=== PATIENT | male | born 1960 | race African-American/Black ===

== ENCOUNTER 2017-02-10 23:23 | Inpatient (IN) | payer MEDICARE ==
[~2017-02-10] VITALS: Ht 172.7 cm; Wt 58.3 kg
[2017-02-11] VITALS (13 sets, daily range): BP systolic 90–132; BP diastolic 64–96
[2017-02-11 00:28] LABS: BASO % 1 % (0-3); EOS # 0.2 x10^3/uL (0.0-0.7); EOS % 4 % (0-3); HEMATOCRIT 43.5 % (39.0-53.0); HEMOGLOBIN 15.3 g/dL (13.0-17.5); LYMPH # 1.2 x10^3/uL (1.0-4.8); LYMPH % 27 % (24-48); MEAN CORPUSCULAR HEMOGLOBIN 33 pg (25-35); MEAN CORPUSCULAR HGB CONC 35 g/dL (31-37); MEAN CORPUSCULAR VOLUME 93 fL (79-100); MONO # 0.5 x10^3/uL (0.0-1.1); MONO % 10 % (0-9); NEUT # 2.5 x10^3uL (1.8-7.7); NEUT % 58 % (31-73); PLATELET COUNT 193 x10^3/uL (140-400); RED BLOOD COUNT 4.67 x10^6/uL (4.30-5.70); RED CELL DISTRIBUTION WIDTH 13.7 % (11.5-14.5); WHITE BLOOD COUNT 4.4 x10^3/uL (4.0-11.0)
[2017-02-11 00:33] LABS: CALCIUM 8.7 mg/dL (8.5-10.1); CREATININE 0.9 mg/dL (0.7-1.3); GFR 104.9
[2017-02-11 00:36] LABS: BARBITURATES NEG (NEG); BENZODIAZEPINES NEG (NEG); CANNABINOIDS NEG (NEG); COCAINE NEG (NEG); METHADONE NEG (NEG); OPIATES NEG (NEG); PHENCYCLIDINE NEG (NEG)
[2017-02-11 00:39] LABS: POTASSIUM 2.1 mmol/L (3.5-5.1)
[2017-02-11 00:40] LABS: AMPHETAMINE/METHAMPHETAMINE NEG (NEG)
--- NOTE | 2017-02-11 01:15 | EKG ---
[address] [address] Test Date: 2017-02-11 Test Time: 00:44:47 Pat Name: JEFF SEXTON Department: Room: Gender: M Chaperon: : 1960 Requested By: MONICA FRAIRE Order Number: [id number] Reading MD: Measurements Intervals [place] Rate: 92 P: 68 IL: 190 QRS: -47 QRSD: 78 T: 44 QT: 358 QTc: 448 Interpretive Statements SINUS RHYTHM ABNORMAL LEFT AXIS DEVIATION LEFT ANTERIOR FASCICULAR BLOCK QRS(T) CONTOUR ABNORMALITY CANNOT RULE OUT ANTEROSEPTAL MYOCARDIAL DAMAGE RI6.01 Unconfirmed report No previous ECG available for comparison
[2017-02-11] MEDS ORDERED: ONDANSETRON PF 4 MG/2 ML VIAL. IV PRN (02:30)
[2017-02-11] MEDS ORDERED: ACETAMINOPHEN 325 MG TABLET PO PRN (02:30)
[2017-02-11] MEDS ORDERED: IV NORMAL SALINE 1,000ML 1,000 ML ONE (02:32)
[2017-02-11] MEDS ORDERED: POTASSIUM CL 40MEQ IN 0.9%NACL 1,000 ML IV ONE (02:45)
[2017-02-11] MEDS ORDERED: POTASSIUM CHLORIDE 20 MEQ/15 ML ORAL LIQUID. PEG ONE (02:45)
[2017-02-11] MEDS ORDERED: POTASSIUM CHLORIDE 20 MEQ/15 ML ORAL LIQUID. PO ONE (02:45)
--- NOTE | 2017-02-11 03:45 | ED.ADGEN ---
Adult General HPI HPI Patient is a 56-year-old man, with history of hypokalemia, for which he takes potassium supplementation, history of hypertension, for which he takes amlodipine, history of depression, for which he takes Topamax, who presents the emergency department with a complaint of suicidal ideation. Patient states he was kicked out of the house by his , feels as though he has no support, and "everybody is after me". Patient states that he currently plans to kill himself by driving off her bridge. He has a history of several previous attempts of hematocrit his wrists, and one attempt of alcohol overdose. He states he did have a single glass of tequila prior to come to the ED today. He states he did speak to his counselor, María, who instructed him to come to the ED for additional evaluation. Patient is extremely tearful in the emergency department. He denies any auditory or visual hallucinations, he denies any ingestions aside from the alcohol prior to coming to the ED. Review of Systems Review of Systems Constitutional: Denies fever or chills [] Eyes: Denies change in visual acuity, redness, or eye pain [] HENT: Denies nasal congestion or sore throat [] Respiratory: Denies cough or shortness of breath [] Cardiovascular: No additional information not addressed in HPI [] GI: Denies abdominal pain, nausea, vomiting, bloody stools or diarrhea [] : Denies dysuria or hematuria [] Musculoskeletal: Denies back pain or joint pain [] Integument: Denies rash or skin lesions [] Neurologic: Denies headache, focal weakness or sensory changes [] Endocrine: Denies polyuria or polydipsia [ Complains of depression with suicidal ideation.] Allergies Allergies Allergies Coded Allergies Type Severity Reaction Last Updated Verified levofloxacin Allergy Unknown 02/11/17 Yes Physical Exam Physical Exam Constitutional: Well developed, well nourished, no acute distress, non-toxic appearance. [] HENT: Normocephalic, atraumatic, bilateral external ears normal, oropharynx moist, no oral exudates, nose normal. [] Eyes: PERRLA, EOMI, conjunctiva normal, no discharge. [] Neck: Normal range of motion, no tenderness, supple, no stridor. [] Cardiovascular:Heart rate regular rhythm, no murmur , S1, S2, no rubs or gallops. [] Lungs & Thorax: Bilateral breath sounds clear to auscultation , no wheezing, rhonchi, rales. No chest or crepitus or tenderness. [] Abdomen: Bowel sounds normal, soft, no tenderness, no rebound, rigidity, no guarding, no masses, no pulsatile masses. [] Skin: Warm, dry, no erythema, no rash. [] Back: No tenderness, no CVA tenderness. [] Extremities: No tenderness, no cyanosis, no clubbing, ROM intact, no edema. [] Neurologic: Alert and oriented X 3, normal motor function, normal sensory function, no focal deficits noted. [] Psychologic: Patient tearful, crying during my examination, but is answering questions appropriately. Current Patient Data Lab Results Laboratory Tests Test 02/11/17 00:00 02/11/17 00:15 Urine Opiates Screen Neg (NEG) Urine Methadone Screen Neg (NEG) Urine Barbiturates Neg (NEG) Urine Phencyclidine Screen Neg (NEG) Urine Amphetamine/Methamphetamine Neg (NEG) Urine Benzodiazepines Screen Neg (NEG) Urine Cocaine Screen Neg (NEG) Urine Cannabinoids Screen Neg (NEG) Urine Ethyl Alcohol Pos (NEG) White Blood Count 4.4 x10^3/uL (4.0-11.0) Red Blood Count 4.67 x10^6/uL (4.30-5.70) Hemoglobin 15.3 g/dL (13.0-17.5) Hematocrit 43.5 % (39.0-53.0) Mean Corpuscular Volume 93 fL (79-100) Mean Corpuscular Hemoglobin 33 pg (25-35) Mean Corpuscular Hemoglobin Concent 35 g/dL (31-37) Red Cell Distribution Width 13.7 % (11.5-14.5) Platelet Count 193 x10^3/uL (140-400) Neutrophils (%) (Auto) 58 % (31-73) Lymphocytes (%) (Auto) 27 % (24-48) Monocytes (%) (Auto) 10 % (0-9) H Eosinophils (%) (Auto) 4 % (0-3) H Basophils (%) (Auto) 1 % (0-3) Neutrophils # (Auto) 2.5 x10^3uL (1.8-7.7) Lymphocytes # (Auto) 1.2 x10^3/uL (1.0-4.8) Monocytes # (Auto) 0.5 x10^3/uL (0.0-1.1) Eosinophils # (Auto) 0.2 x10^3/uL (0.0-0.7) Basophils # (Auto) 0.0 x10^3/uL (0.0-0.2) Sodium Level 139 mmol/L (136-145) Potassium Level 2.1 mmol/L (3.5-5.1) *L Chloride Level 100 mmol/L (98-107) Carbon Dioxide Level 25 mmol/L (21-32) Anion Gap 14 (6-14) Blood Urea Nitrogen 12 mg/dL (8-26) Creatinine 0.9 mg/dL (0.7-1.3) Estimated GFR (Cockcroft-Gault) 104.9 Glucose Level 180 mg/dL (70-99) H Calcium Level 8.7 mg/dL (8.5-10.1) Magnesium Level 2.2 mg/dL (1.8-2.4) Ethyl Alcohol Level 73 mg/dL (0-10) H EKG EKG EC: Sinus rhythm, heart rate 92 beats minute, left axis deviation, with left anterior fascicular block noted, QTc of 448, PA of 190, Or 78, no ST elevations or depressions, abnormal ECG, does not meet STEMI criteria. As interpreted by me. [] Radiology/Procedures Radiology/Procedures Chest x-ray: One view: Normal cardiopulmonary silhouette, no infiltrates, no effusions, no pneumothorax, no soft tissue or bony abnormalities identified. As interpreted by me. [] Course & Med Decision Making Course & Med Decision Making Pertinent Labs and Imaging studies reviewed. (See chart for details) Patient's potassium resulted at 2.1. I did discuss this with the patient, he states that he again does have a history of hypokalemia but has been compliant with medications. I discussed with the patient this time we'll need to admit him to the hospital to receive potassium repletion, and that he could be evaluated for psychiatric complaints. He remains on one-to-one observation in the emergency department, is occasionally tearful and crying, but otherwise is cooperative with his examination. Patient with a magnesium of 2.2, sodium 139, glucose of 180, no other abnormality is identified. Patient remains stable in sinus rhythm on the monitor, with heart rate in the 80s. Findings as above discussed with Dr. Zamarripa, the hospitalist on-call. Patient accepted to his service as a full admission to the ICU for continued monitoring, and repletion. Patient received oral repletion with 40 mEq of potassium in the ED, was initiated on 40 mEq of potassium in a liter of normal saline, and additional 40 mEq of potassium given orally upon admission to the hospital. Patient tolerated initiation repletion without issue, was transported to the ICU in stable condition. Bridge orders entered per discussion, with repeat laboratory studies for the morning and continued one-on-one observation. Final Impression Final Impression [] Problems: Dragon Disclaimer Dragon Disclaimer This electronic medical record was generated, in whole or in part, using a voice recognition dictation system. Departure: Impression: Primary Impression: Hypokalemia Additional Impression: Suicidal ideation Disposition: ADMITTED INPATIENT Admitting Physician: Miguel Ángel Zamarripa Condition: IMPROVED MONICA FRAIRE DO Feb 11, 2017 03:45
--- NOTE | 2017-02-11 07:15 | RAD ---
Portable AP upright view CXR: Clinical indications: Weakness and cough. Comparison: January 18, 2011 Findings: No acute lung infiltrate or pleural effusion or pulmonary edema or lung mass or pneumothorax is seen. The heart size, pulmonary vasculature, mediastinum and both leanne are unremarkable. Impression: No acute radiographic abnormality is seen.
[2017-02-11] MEDS ORDERED: AMLO10TA2 PO (07:32)
[2017-02-11] MEDS ORDERED: TOPI100T8 PO (07:32)
[2017-02-11] MEDS ORDERED: OLAN5TAB9 PO (07:32)
[2017-02-11] MEDS ORDERED: HYDR25TA9 PO (07:32)
[2017-02-11] MEDS ORDERED: HYDR25TA PO (07:32)
[2017-02-11 08:41] LABS: BASO % 1 % (0-3); EOS # 0.2 x10^3/uL (0.0-0.7); EOS % 4 % (0-3); HEMATOCRIT 40.7 % (39.0-53.0); HEMOGLOBIN 14.3 g/dL (13.0-17.5); LYMPH # 1.3 x10^3/uL (1.0-4.8); LYMPH % 36 % (24-48); MEAN CORPUSCULAR HEMOGLOBIN 33 pg (25-35); MEAN CORPUSCULAR HGB CONC 35 g/dL (31-37); MEAN CORPUSCULAR VOLUME 93 fL (79-100); MONO # 0.4 x10^3/uL (0.0-1.1); MONO % 11 % (0-9); NEUT # 1.7 x10^3uL (1.8-7.7); NEUT % 48 % (31-73); PLATELET COUNT 195 x10^3/uL (140-400); RED BLOOD COUNT 4.37 x10^6/uL (4.30-5.70); RED CELL DISTRIBUTION WIDTH 13.6 % (11.5-14.5); WHITE BLOOD COUNT 3.6 x10^3/uL (4.0-11.0)
[2017-02-11 08:45] LABS: CALCIUM 8.5 mg/dL (8.5-10.1); CREATININE 0.9 mg/dL (0.7-1.3); GFR 104.9
[2017-02-11] MEDS: TOPIRAMATE 100 MG TABLET. PO SCH (08:45)
[2017-02-11] MEDS ORDERED: hydrOXYzine HCL 25 MG TABLET PO SCH ×2 (09:00→21:00)
--- NOTE | 2017-02-11 09:59 | ACF ---
Admission Criteria Forms HYPONATREMIA; HYPERNATREMIA; HYPOKALEMIA; HYPERKALEMIA; HYPOCALCEMIA; HYPERCALCEMIA Clinical Indications for Inpatient Care (Place 'X' for any and all applicable criteria): Ongoing inpatient care may be indicated for ANY ONE of the following [G](1)(2)(3 )(5): [ ]I. Hyponatremia with ANY ONE of the following: [ ]a) Sodium less than 130 mEq/L (mmol/L) (new) (6)(22) [ ]b) Sodium less than 135 mEq/L (mmol/L) with ANY ONE of the following: [ ]i) Severe medical etiology requiring inpatient management (eg, heart failure, hypovolemia) [ ]ii) Altered mental status [ ]iii) Seizures [ ]II. Hypernatremia with ANY ONE of the following: [ ]a) Sodium greater than 155 mEq/L (mmol/L) [ ]b) Sodium greater than 150 mEq/L (mmol/L) with ANY ONE of the following: [ ] i) Altered mental status [ ]ii) Seizures [ ]iii) Severe medical etiology (eg, hypovolemia, diabetes insipidus) [ ]iv) Severe weakness [ ]v) Severe medical etiology (eg, hemolysis, infection, drug overdose) [X]III. Hypokalemia with ANY ONE of the following: [X]a) Potassium less than 2.5 mEq/L (mmol/L) despite outpatient and emergency treatment [ ]b) Potassium less than 3.0 mEq/L (mmol/L) with ANY ONE of the following: [ ]i) Weakness [ ]ii) Cardiac abnormality (eg, arrhythmia, conduction disturbance) [ ]iii) Cardiac ischemia [ ]iv) Ileus [ ]v) Ongoing medical cause requiring inpatient management. ( e.g., acute renal wasting, SIADH) [ ]vi) Other severe symptoms [ ] IV. Hyperkalemia with ANY ONE of the following: [ ]a) Potassium greater than 6.5 mEq/L (mmol/L) [ ]b) Potassium greater than 5 mEq/L (mmol/L) with ANY ONE of the following: [ ]i) Severe ECG findings [H] [ ]ii) Acute worsening of renal failure (creatinine greater than 2.5 mg/dL (221 micromoles/L) or significant elevation for age and size) [ ] V. Hypocalcemia with ANY ONE of the following: [ ]a) Calcium less than 7 mg/dL (1.75 mmol/L) despite outpatient and emergency treatment(19) [ ]b) Calcium less than 8 mg/dL (2 mmol/L) with significant symptoms or findings; examples include: [ ]i) Cardiac abnormality (eg, arrhythmia or conduction disturbance) [ ]ii) Altered mental status [ ]iii) Seizures [ ]iv) Breathing difficulty [ ]v) Muscle spasms [ ]. Hypercalcemia with ANY ONE of the following: [ ]a) Calcium greater than 14 mg/dL (3.5 mmol/L) [ ]b) Calcium greater than 12 mg/dL (3 mmol/L) with ANY ONE of the following: [ ]i) Significant dehydration or hypovolemia as indicated by ANY ONE of the following(2): [ ]1. Clinically significant dehydration as indicated by ANY ONE of the following: [ ]A. Acute loss of weight from baseline (5% of body weight in adults, 9% in pediatric patients) [ ]B. Hemodynamic instability [ ]C. Acute renal failure [ ]D. Serum sodium greater than 150 mEq/L (mmol/L) [ ]2) Dehydration that is persistent indicated by ALL of the following: [ ]A. Oral rehydration therapy not tolerated or insufficient to adequately correct dehydration [ ]B. Appropriate intravenous treatment (eg, fluids ) does not readily correct dehydration ie, after 12 to 24 hours of treatment) [ ]ii) Significant symptoms or findings; examples include: [ ]1) Altered mental status [ ]2) Cardiac abnormality (eg, arrhythmia, conduction disturbance) [ ]3) Cardiac abnormality (eg, arrhythmia, conduction disturbance) The original [facility] content created by [employer] has been revised. The portions of the content which have been revised are identified through the use of italic text or in bold, and [email or web address] has neither reviewed nor approved the modified material. All other unmodified content is copyright [facility] [email or web address] Please see references footnoted in the original [facility] [employer] edition 2016 Admission Criteria Met?: Yes JAZ SINGLETON Feb 11, 2017 09:59
[2017-02-11] MEDS: OLANZapine 5 MG TABLET PO SCH (11:11)
[2017-02-11] MEDS ORDERED: POTASSIUM CHLORIDE 20 MEQ TABLET.ER. PO ONE ×3 (12:45→16:45)
--- NOTE | 2017-02-11 15:47 | PDOC1 ---
History and Physicial This is a history and physical on Ebenezer Lee Junior Date of admission 02/11/2017 Reason for admission: This is a 56-year-old -[place] Citizen male who was admitted for both suicidal ideation and markedly low potassium. He presented to the emergency room complaining of suicidal ideation. He got in his car apparently he states And started driving with no particular place to go. His threw him out and has filed for divorce. She will not tell him why she is him. He called the psychologist and told him to go to the hospital. Past medical history: Hypertension, depression, daily alcohol use. bipolar disorder Previous treatment for depression: The patient has had a history of several suicide attempts 1 with slashing of his wrists and other alcohol overdose. Surgical history negative Allergies: Levaquin Medications were reviewed and are available on the MAR Social history: patient is for 19 years he states his he does not work but his does. Apparently there was some incident at school where she works when he went there he will commented that he looks somewhat younger than his and this made her quite angry. 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 HEENT normal tongue moist throat clear Lungs were clear to auscultation cardiovascular regular rhythm and rate Abdomen was soft nontender palpation no masses palpated. Extremities were without edema Psychological: Mood is depressed and anxious. Does have gross state of desperation regarding his impending divorce which he has no idea why Labs have potassium was 2.0 labs unremarkable Assessment: #1 hypokalemia, #2 hypertension, #3 depression with suicidal ideation, for unstable social situation pending divorce Plan: Treat his hypokalemia. Discontinue the hydrochlorothiazide. Due to his low potassium we were not able to get him to the guidance Center today. He no longer feels suicidal. He was on one-on-one observation but now is every 15 minutes observation. Problems: (1) Bipolar 1 disorder (2) Hypokalemia (3) Suicidal ideation ADRIENNE FAGAN DO Feb 11, 2017 15:47
[2017-02-12 05:01] VITALS: BP 126/87
[2017-02-12 06:30] LABS: BASO % 1 % (0-3); EOS # 0.2 x10^3/uL (0.0-0.7); EOS % 5 % (0-3); HEMATOCRIT 36.7 % (39.0-53.0); HEMOGLOBIN 12.6 g/dL (13.0-17.5); LYMPH # 1.5 x10^3/uL (1.0-4.8); LYMPH % 36 % (24-48); MEAN CORPUSCULAR HEMOGLOBIN 33 pg (25-35); MEAN CORPUSCULAR HGB CONC 34 g/dL (31-37); MEAN CORPUSCULAR VOLUME 95 fL (79-100); MONO # 0.4 x10^3/uL (0.0-1.1); MONO % 9 % (0-9); NEUT # 2.1 x10^3uL (1.8-7.7); NEUT % 50 % (31-73); PLATELET COUNT 159 x10^3/uL (140-400); RED BLOOD COUNT 3.85 x10^6/uL (4.30-5.70); RED CELL DISTRIBUTION WIDTH 13.8 % (11.5-14.5); WHITE BLOOD COUNT 4.2 x10^3/uL (4.0-11.0)
[2017-02-12 06:34] LABS: CALCIUM 8.4 mg/dL (8.5-10.1); GFR 92.9; POTASSIUM 3.6 mmol/L (3.5-5.1)
[2017-02-12] MEDS: TOPIRAMATE 100 MG TABLET. PO SCH (08:35)
[2017-02-12] MEDS: OLANZapine 5 MG TABLET PO SCH (08:35)
--- NOTE | 2017-02-12 11:46 | PDOC3 ---
Discharge Summary Visit Information Date of Admission: Feb 11, 2017 Date of Discharge: Feb 12, 2017 Admitting Diagnosis: Hypokalemia, Suicidal Ideation Final Diagnosis Problems Medical Problems: (1) Hypokalemia Status: Acute (2) Suicidal ideation Status: Acute (3) Hypertension (4) Marital discord (5) Bipolar disorder Problems: Brief Hospital Course Allergies Allergies Coded Allergies Type Severity Reaction Last Updated Verified levofloxacin Allergy Intermediate 02/11/17 Yes Vital Signs Vital Signs Date Time Temp Pulse Resp B/P (MAP) Pulse Ox O2 Delivery O2 Flow Rate FiO2 02/12/17 08:00 Room Air 02/12/17 05:01 97.8 77 18 126/87 (100) 98 Lab Results Laboratory Tests Test 02/11/17 00:00 02/11/17 00:15 02/11/17 04:00 02/11/17 08:00 Urine Opiates Screen Neg (NEG) Urine Methadone Screen Neg (NEG) Urine Barbiturates Neg (NEG) Urine Phencyclidine Screen Neg (NEG) Urine Amphetamine/Methamphetamine Neg (NEG) Urine Benzodiazepines Screen Neg (NEG) Urine Cocaine Screen Neg (NEG) Urine Cannabinoids Screen Neg (NEG) Urine Ethyl Alcohol Pos (NEG) White Blood Count 4.4 x10^3/uL (4.0-11.0) 3.6 x10^3/uL (4.0-11.0) Red Blood Count 4.67 x10^6/uL (4.30-5.70) 4.37 x10^6/uL (4.30-5.70) Hemoglobin 15.3 g/dL (13.0-17.5) 14.3 g/dL (13.0-17.5) Hematocrit 43.5 % (39.0-53.0) 40.7 % (39.0-53.0) Mean Corpuscular Volume 93 fL (79-100) 93 fL (79-100) Mean Corpuscular Hemoglobin 33 pg (25-35) 33 pg (25-35) Mean Corpuscular Hemoglobin Concent 35 g/dL (31-37) 35 g/dL (31-37) Red Cell Distribution Width 13.7 % (11.5-14.5) 13.6 % (11.5-14.5) Platelet Count 193 x10^3/uL (140-400) 195 x10^3/uL (140-400) Neutrophils (%) (Auto) 58 % (31-73) 48 % (31-73) Lymphocytes (%) (Auto) 27 % (24-48) 36 % (24-48) Monocytes (%) (Auto) 10 % (0-9) 11 % (0-9) Eosinophils (%) (Auto) 4 % (0-3) 4 % (0-3) Basophils (%) (Auto) 1 % (0-3) 1 % (0-3) Neutrophils # (Auto) 2.5 x10^3uL (1.8-7.7) 1.7 x10^3uL (1.8-7.7) Lymphocytes # (Auto) 1.2 x10^3/uL (1.0-4.8) 1.3 x10^3/uL (1.0-4.8) Monocytes # (Auto) 0.5 x10^3/uL (0.0-1.1) 0.4 x10^3/uL (0.0-1.1) Eosinophils # (Auto) 0.2 x10^3/uL (0.0-0.7) 0.2 x10^3/uL (0.0-0.7) Basophils # (Auto) 0.0 x10^3/uL (0.0-0.2) 0.0 x10^3/uL (0.0-0.2) Sodium Level 139 mmol/L (136-145) 139 mmol/L (136-145) Potassium Level 2.1 mmol/L (3.5-5.1) 3.0 mmol/L (3.5-5.1) Chloride Level 100 mmol/L (98-107) 102 mmol/L (98-107) Carbon Dioxide Level 25 mmol/L (21-32) 29 mmol/L (21-32) Anion Gap 14 (6-14) 8 (6-14) Blood Urea Nitrogen 12 mg/dL (8-26) 17 mg/dL (8-26) Creatinine 0.9 mg/dL (0.7-1.3) 0.9 mg/dL (0.7-1.3) Estimated GFR (Cockcroft-Gault) 104.9 104.9 Glucose Level 180 mg/dL (70-99) 108 mg/dL (70-99) Calcium Level 8.7 mg/dL (8.5-10.1) 8.5 mg/dL (8.5-10.1) Magnesium Level 2.2 mg/dL (1.8-2.4) Ethyl Alcohol Level 73 mg/dL (0-10) < 10 mg/dL (0-10) Nasal Screen MRSA (PCR) Negative (Negative) Test 02/11/17 12:17 02/11/17 16:00 02/12/17 05:39 Potassium Level 2.9 mmol/L (3.5-5.1) 3.2 mmol/L (3.5-5.1) 3.6 mmol/L (3.5-5.1) White Blood Count 4.2 x10^3/uL (4.0-11.0) Red Blood Count 3.85 x10^6/uL (4.30-5.70) Hemoglobin 12.6 g/dL (13.0-17.5) Hematocrit 36.7 % (39.0-53.0) Mean Corpuscular Volume 95 fL (79-100) Mean Corpuscular Hemoglobin 33 pg (25-35) Mean Corpuscular Hemoglobin Concent 34 g/dL (31-37) Red Cell Distribution Width 13.8 % (11.5-14.5) Platelet Count 159 x10^3/uL (140-400) Neutrophils (%) (Auto) 50 % (31-73) Lymphocytes (%) (Auto) 36 % (24-48) Monocytes (%) (Auto) 9 % (0-9) Eosinophils (%) (Auto) 5 % (0-3) Basophils (%) (Auto) 1 % (0-3) Neutrophils # (Auto) 2.1 x10^3uL (1.8-7.7) Lymphocytes # (Auto) 1.5 x10^3/uL (1.0-4.8) Monocytes # (Auto) 0.4 x10^3/uL (0.0-1.1) Eosinophils # (Auto) 0.2 x10^3/uL (0.0-0.7) Basophils # (Auto) 0.0 x10^3/uL (0.0-0.2) Sodium Level 143 mmol/L (136-145) Chloride Level 110 mmol/L (98-107) Carbon Dioxide Level 27 mmol/L (21-32) Anion Gap 6 (6-14) Blood Urea Nitrogen 12 mg/dL (8-26) Creatinine 1.0 mg/dL (0.7-1.3) Estimated GFR (Cockcroft-Gault) 92.9 Glucose Level 130 mg/dL (70-99) Calcium Level 8.4 mg/dL (8.5-10.1) Brief Hospital Course Mr. Alonzo is a 56 old -[place] male who presented with suicidal ideation after his threw him out of the house. He had been driving around aimlessly and spoke to his psychologist who advised him to go to the hospital. While under evaluation in the emergency room he was found to have very low potassium of 2.0 and was subsequently admitted. He was treated with by mouth as well as IV potassium, he received one-on-one intervention initially, and over the course of yesterday and today did not exhibit any further suicidal ideation. Psychiatric evaluation was not available at [facility] At that time. He was discharged in good condition. His hydrochlorothiazide was discontinued due to the profound hypokalemia which I believe it came from and that he had quite good blood pressures. We discussed him following up with psychologist on Tuesday, and he received type written discharge instructions sent to put put out by myself. His mental state at the time of discharge was calm and cooperative, no suicidal ideation, thought processes clear, and able to be discharged. Discharge Information Condition at Discharge: Improved, Stable Disposition/Orders: D/C to Home Dischare Medications Current Medications Potassium Chloride (KCl Oral Soln) 40 meq 1X ONCE PEG Last administered on 02:45; Start 02/11/17 at 02:45; Stop 02/11/17 at 02:46; Status DC Potassium Chloride/Sodium Chloride 1,000 ml @ 75 mls/hr 1X ONCE IV Last administered on 02/11/17 02:45; Start 02/11/17 at 02:45; Stop 02/11/17 at 16:04 ; Status DC Ondansetron HCl (Zofran) 4 mg PRN Q4HRS PRN IV NAUSEA/VOMITING; Start 02/11/17 at 02:30; Stop 02/12/17 at 02:29; Status DC Acetaminophen (Tylenol) 650 mg PRN Q4HRS PRN PO FEVER; Start 02/11/17 at 02:30 ; Stop 02/12/17 at 02:29; Status DC Potassium Chloride (KCl Oral Soln) 40 meq 1X ONCE PO ; Start 02/11/17 at 02:45 ; Stop 02/11/17 at 02:46; Status DC Sodium Chloride 1,000 ml @ As Directed STK-MED ONCE .ROUTE ; Start 02/11/17 at 02:32; Stop 02/11/17 at 02:33; Status DC Hydroxyzine HCl (Atarax) 25 mg DAILY PO ; Start 02/11/17 at 09:00; Stop at 09:00; Status DC Topiramate (Topamax) 100 mg DAILY PO Last administered on 02/12/17 08:35; Start 02/11/17 at 09:00; Stop 02/12/17 at 10:28; Status DC Hydroxyzine HCl (Atarax) 25 mg QHS PO Last administered on 02/11/17 21:37; Start 02/11/17 at 21:00; Stop 02/12/17 at 10:28; Status DC Potassium Chloride (Klor-Con) 40 meq 1X ONCE PO Last administered on 13:08; Start 02/11/17 at 12:45; Stop 02/11/17 at 12:46; Status DC Olanzapine (ZyPREXA) 5 mg DAILY PO Last administered on 02/12/17 08:35; Start 02/11/17 at 11:00; Stop 02/12/17 at 10:28; Status DC Potassium Chloride (Klor-Con) 40 meq 1X ONCE PO ; Start 02/11/17 at 13:15; Stop 02/11/17 at 13:16; Status DC Potassium Chloride (Klor-Con) 40 meq 1X ONCE PO Last administered on 17:54; Start 02/11/17 at 16:45; Stop 02/11/17 at 16:46; Status DC Active Scripts Active Reported Hydroxyzine Hcl 25 Mg Tablet 25 Mg PO DAILY 30 Days LAST DOSE GIVEN: DATE: YESTERDAY TIME: AT BEDTIME NEXT DOSE DUE: DATE: TONIGHT TIME: AT BEDTIME Olanzapine 5 Mg Tablet 5 Mg PO DAILY 30 Days LAST DOSE GIVEN: DATE: TODAY TIME: 9AM NEXT DOSE DUE: DATE: 02/13 TIME: 9AM Amlodipine Besylate 10 Mg Tablet 10 Mg PO DAILY 90 Days LAST DOSE GIVEN: HELD THIS ADMISSION NEXT DOSE DUE: DATE: 02/13 TIME: 9AM DATE: 02/12 TIME: 9AM Topiramate 100 Mg Tablet 100 Mg PO DAILY 30 Days LAST DOSE GIVEN: DATE: TODAY TIME: 9AM NEXT DOSE DUE: DATE: 02/13 TIME: 9AM Patient Instructions Patient Instuctions A typewritten instructions done on the discharge on his medical records. ADRIENNE FAGAN DO Feb 12, 2017 11:46
== END 2017-02-12 10:00 | disposition home or self-care (01) | DRG 641 ==
LOC: ER 23:23 → ICU 02-11 02:29 → 1 SOUTH 02-11 17:43
PROVIDERS: ADMIT Family Medicine; ATTEND Family Medicine
DX: E87.6 Hypokalemia (principal); R45.851 Suicidal ideations; F31.9 Bipolar disorder, unspecified; I10 Essential (primary) hypertension; Z87.898 Personal history of other specified conditions; Z91.5 Personal history of self-harm; Z88.1 Allergy status to other antibiotic agents; Z79.899 Other long term (current) drug therapy; Z79.1 Long term (current) use of non-steroidal anti-inflammatories (NSAID); Z79.82 Long term (current) use of aspirin
CPT/HCPCS: 36415; 71010; 80048; 83735; 84132; 85027; 87641; 93005; 96365; G0480; G0481; 99285-25

== ENCOUNTER 2020-02-19 14:59 | Emergency (ER) | payer SELFPAY ==
[~2020-02-19] VITALS: Ht 170.2 cm; Wt 55.5 kg
[~2020-02-19 14:59] MED LIST: AMLO10TA8 PO; HYDR-2145 PO; HYDR25TA PO; OLAN5TAB9 PO; TOPI100T8 PO
--- NOTE | 2020-02-19 15:20 | PHYS DOC ---
Past History Past Medical History: Depression, Hypertension, Other Past Surgical History: No Surgical History Smoking: Cigarettes Alcohol Use: Sober Drug Use: None General Adult EDM: Chief Complaint: ABNORMAL LABS HPI: HPI: Patient is a 59-year-old male who presents to the emergency department from his PCPs office. He saw a nurse practitioner for routine follow-up of his elevated blood pressure, he has been asymptomatic. He went for routine blood test and was found to have a white blood cell count. He also had some weight loss over the past several months, although he is uncertain how much, maybe 10 to 20 pounds he estimates. He had a chest x-ray at the doctor's office and reports that there was an abnormality in his left upper lobe, and he was sent to the emergency department for "a scan". He saw the nurse practitioner. The patient is currently asymptomatic. He denies any nasal congestion, cough, shortness of breath, or any pain. He denies any weakness, dizziness, or lightheadedness, and feels well. There are no alleviating or exacerbating factors to his symptoms otherwise. Review of Systems: Review of Systems: Constitutional: Denies fever or chills. Reports some weight loss. Eyes: Denies change in visual acuity HENT: Denies nasal congestion or sore throat Respiratory: Denies cough or shortness of breath Cardiovascular: Denies chest pain or edema GI: Denies abdominal pain, nausea, vomiting, bloody stools or diarrhea : Denies dysuria Musculoskeletal: Denies back pain or joint pain Integument: Denies rash Neurologic: Denies headache, focal weakness or sensory changes Endocrine: Denies polyuria or polydipsia Lymphatic: Denies swollen glands Psychiatric: Denies depression or anxiety Heart Score: Risk Factors: Risk Factors: DM, Current or recent (<one month) smoker, HTN, HLP, family history of CAD, obesity. Risk Scores: Score 0 - 3: 2.5% MACE over next 6 weeks - Discharge Home Score 4 - 6: 20.3% MACE over next 6 weeks - Admit for Clinical Observation Score 7 - 10: 72.7% MACE over next 6 weeks - Early Invasive Strategies Allergies: Allergies: Allergies Coded Allergies Type Severity Reaction Last Updated Verified levofloxacin Allergy Intermediate 02/11/17 Yes Physical Exam: PE: PHYSICAL EXAM: CONSTITUTIONAL: Thin, but not cachectic appearing, HEAD: normocephalic, atraumatic EENT: PERRL, EOMI. Conjunctivae normal color, sclerae non-icteric; moist mucous membranes. NECK: Supple, non-tender; no meningismus. LUNGS: There are mildly diminished breath sounds diffusely, there are some rhonchi in the left upper lobe, otherwise lungs CTA, breathing even and unlabored. HEART: Regular rate and rhythm, no murmur CHEST: No deformity; non-tender ABDOMEN: The abdomen is soft, and non-tender, no masses or bruits. EXTREM: Normal ROM; no deformity, no calf tenderness. Normal pulses palpable in all extremities. There is no pedal edema. SKIN: No rash; no diaphoresis NEURO: Alert; normal speech and cognition; CN's grossly intact; strength grossly intact without focal deficit. BACK: No CVA TTP. Current Patient Data: Labs: Laboratory Tests Test 02/19/20 15:39 White Blood Count 4.7 x10^3/uL Red Blood Count 4.73 x10^6/uL Hemoglobin 14.7 g/dL Hematocrit 43.3 % Mean Corpuscular Volume 91 fL Mean Corpuscular Hemoglobin 31 pg Mean Corpuscular Hemoglobin Concent 34 g/dL Red Cell Distribution Width 14.7 % Platelet Count 181 x10^3/uL Neutrophils (%) (Auto) 64 % Lymphocytes (%) (Auto) 24 % Monocytes (%) (Auto) 9 % Eosinophils (%) (Auto) 3 % Basophils (%) (Auto) 0 % Neutrophils # (Auto) 3.0 x10^3uL Lymphocytes # (Auto) 1.1 x10^3/uL Monocytes # (Auto) 0.4 x10^3/uL Eosinophils # (Auto) 0.1 x10^3/uL Basophils # (Auto) 0.0 x10^3/uL Sodium Level 137 mmol/L Potassium Level 3.7 mmol/L Chloride Level 103 mmol/L Carbon Dioxide Level 27 mmol/L Anion Gap 7 Blood Urea Nitrogen 7 mg/dL Creatinine 1.1 mg/dL Estimated GFR (Cockcroft-Gault) 82.3 BUN/Creatinine Ratio 6 Glucose Level 105 mg/dL Calcium Level 8.8 mg/dL Total Bilirubin 1.1 mg/dL Aspartate Amino Transf (AST/SGOT) 12 U/L Alanine Aminotransferase (ALT/SGPT) 17 U/L Alkaline Phosphatase 72 U/L OU-Tan-T-Type Natriuretic Peptide 16 pg/mL Total Protein 7.5 g/dL Albumin 3.7 g/dL Albumin/Globulin Ratio 1.0 Current Medications Medications (Trade) Dose Ordered Sig/Yan Route PRN Reason Start Time Stop Time Status Last Admin Dose Admin Iohexol (Omnipaque 350 Mg/ml) 100 ml 1X ONCE IV 02/19/20 15:30 02/19/20 15:32 DC 02/19/20 15:50 EKG: EKG: [] Radiology/Procedures: Radiology/Procedures: PROCEDURE: CT CHEST W/CONTRAST CT CHEST W/CONTRAST Indication: Abnormal chest x-ray, elevated WBC, weight loss Technique: Postcontrast CT imaging was performed of the chest, multiplanar reconstruction images submitted. One or more of the following individualized dose reduction techniques were utilized for this examination: 1. Automated exposure control 2. Adjustment of the mA and/or kV according to patient size 3. Use of iterative reconstruction technique. Comparison: January 31, 2008 Findings: There is no infiltrate or suspicious pulmonary nodularity. There is no pleural or pericardial fluid or pneumothorax. There is appearance of a thin accessory fissure of the right lower lobe although only partially visualized, vasculature in this region within normal limits. There is diffuse low-density of the liver probably due to steatosis. There is a small more defined hypodense lesion of the left lobe liver about 0.6 cm difficult to accurately characterize although probably a cyst. Aortic root is somewhat ectatic about 3.8 cm. Tubular ascending thoracic aortic caliber is within normal limits, no intraluminal flap. No significantly enlarged nodes are identified of the chest. IMPRESSION: 1. There is no suspicious pulmonary nodularity or significant infiltrate. 2. There is probable hepatic steatosis.[] Course & Med Decision Making: Course & Med Decision Making Pertinent Labs and Imaging studies reviewed. (See chart for details) [] Patient remains stable. I discussed test results, the need for close follow- up, and return precautions. Dragon Disclaimer: Dragon Disclaimer: This electronic medical record was generated, in whole or in part, using a voice recognition dictation system. Departure Departure: Impression: Primary Impression: Tobacco abuse Disposition: HOME/RESIDENCE PRIOR TO ADM Condition: STABLE Referrals: AGNES HUTSON MD (PCP) Patient Instructions: Smoking Cessation Justification of Admission: Justification of Admission: Justification of Admission Dx: N/A MELODIE IRVIN MD Feb 19, 2020 15:19
[2020-02-19] MEDS ORDERED: IOHEXOL 350 MG/ML 100 ML VIAL. IV ONE (15:30)
[2020-02-19 16:04] LABS: BASO % 0 % (0-3); EOS # 0.1 x10^3/uL (0.0-0.7); EOS % 3 % (0-3); HEMATOCRIT 43.3 % (39.0-53.0); HEMOGLOBIN 14.7 g/dL (13.0-17.5); LYMPH # 1.1 x10^3/uL (1.0-4.8); LYMPH % 24 % (24-48); MEAN CORPUSCULAR HEMOGLOBIN 31 pg (25-35); MEAN CORPUSCULAR HGB CONC 34 g/dL (31-37); MEAN CORPUSCULAR VOLUME 91 fL (79-100); MONO # 0.4 x10^3/uL (0.0-1.1); MONO % 9 % (0-9); NEUT % 64 % (31-73); PLATELET COUNT 181 x10^3/uL (140-400); RED BLOOD COUNT 4.73 x10^6/uL (4.30-5.70); RED CELL DISTRIBUTION WIDTH 14.7 % (11.5-14.5); WHITE BLOOD COUNT 4.7 x10^3/uL (4.0-11.0)
[2020-02-19 16:13] LABS: CALCIUM 8.8 mg/dL (8.5-10.1); CREATININE 1.1 mg/dL (0.7-1.3); GFR 82.3; POTASSIUM 3.7 mmol/L (3.5-5.1)
--- NOTE | 2020-02-19 16:23 | RAD ---
CT CHEST W/CONTRAST Indication: Abnormal chest x-ray, elevated WBC, weight loss Technique: Postcontrast CT imaging was performed of the chest, multiplanar reconstruction images submitted. One or more of the following individualized dose reduction techniques were utilized for this examination: 1. Automated exposure control 2. Adjustment of the mA and/or kV according to patient size 3. Use of iterative reconstruction technique. Comparison: January 31, 2008 Findings: There is no infiltrate or suspicious pulmonary nodularity. There is no pleural or pericardial fluid or pneumothorax. There is appearance of a thin accessory fissure of the right lower lobe although only partially visualized, vasculature in this region within normal limits. There is diffuse low-density of the liver probably due to steatosis. There is a small more defined hypodense lesion of the left lobe liver about 0.6 cm difficult to accurately characterize although probably a cyst. Aortic root is somewhat ectatic about 3.8 cm. Tubular ascending thoracic aortic caliber is within normal limits, no intraluminal flap. No significantly enlarged nodes are identified of the chest. IMPRESSION: 1. There is no suspicious pulmonary nodularity or significant infiltrate. 2. There is probable hepatic steatosis. Electronically signed by: Kendrick Mendez MD (02/19/2020 4:20 PM) [facility]ITALDaryl
[2020-02-19 16:26] LABS: ALBUMIN 3.7 g/dL (3.4-5.0); TOTAL BILIRUBIN 1.1 mg/dL (0.2-1.0); TOTAL PROTEIN 7.5 g/dL (6.4-8.2)
== END 2020-02-19 16:54 | disposition home or self-care (01) ==
LOC: ER 14:59
DX: Z72.0 Tobacco use (principal); I10 Essential (primary) hypertension; Z88.1 Allergy status to other antibiotic agents
CPT/HCPCS: 36415; 71260; 80053; 83605; 83880; 85025; 99285; Q9967